=== PATIENT | female | born 1975 | race Caucasian/White ===

== ENCOUNTER 2023-03-30 12:03 | Inpatient (IN) | payer MEDICAID ==
[~2023-03-30] VITALS: Ht 157.5 cm; Wt 75.7 kg
[2023-03-30 12:26] VITALS: BP 126/77; PULSE 68; RESP 15; TEMP 97.6; O2SAT 99
[2023-03-30] MEDS ORDERED: ONDANSETRON 4 MG/2 ML VIAL IVP ONE (12:40)
[2023-03-30] MEDS ORDERED: MORPHINE SULFATE 4 MG/ML SYR IVP ONE (12:40)
[2023-03-30 13:14] VITALS: O2SAT 99
[2023-03-30 13:23] LABS: BASOPHILS % (AUTO) 0.3 % (0.0-2.0); EOSINOPHILS # (AUTO) 0.1 K/uL (0-0.4); EOSINOPHILS % (AUTO) 1.9 % (0.0-4.0); HEMATOCRIT 31.2 % (36-48); HEMOGLOBIN 10.1 g/dL (12.0-16.0); LYMPHOCYTES # (AUTO) 1.6 K/uL (2.5-16.5); LYMPHOCYTES % (AUTO) 23.5 % (20.5-51.1); MEAN CORPUSCULAR HEMOGLOBIN 25 pg (27-31); MEAN CORPUSCULAR HGB CONC 32 g/dL (33-37); MEAN CORPUSCULAR VOLUME 77.8 fL (80-94); MONOCYTES # (AUTO) 0.5 K/uL (0.8-1.0); MONOCYTES % (AUTO) 7.8 % (1.7-9.3); NEUTROPHILS # (AUTO) 4.4 K/uL (1.8-7.7); NEUTROPHILS % (AUTO) 66.5 % (42.2-75.2); PLATELET COUNT (AUTO) 327 K/uL (140-450); RED BLOOD CELL COUNT(AUTO) 4.01 MIL/uL (4.20-5.40); RED CELL DISTRIBUTION WIDTH 19.4 % (11.6-13.7); WHITE BLOOD COUNT (AUTO) 6.7 K/uL (4.8-10.8)
[2023-03-30 13:37] LABS: INR 0.99 (0.8-1.2); PARTIAL THROMBOPLASTIN TIME 23.5 secs (22-35.6); PROTHROMBIN TIME 10.4 secs (10.8-13.4)
[2023-03-30 13:38] LABS: ALBUMIN 2.9 g/dL (3.4-5.0); ANION GAP 9.8 (8-16); CALCIUM 8.1 mg/dL (8.5-10.1); CARBON DIOXIDE 27.9 mmol/L (21-32); CREATININE 0.8 mg/dL (0.6-1.3); TOTAL BILIRUBIN 0.9 mg/dL (0.0-1.0); TOTAL PROTEIN, SERUM 6.7 g/dL (6.4-8.2)
[2023-03-30 13:40] LABS: POTASSIUM 2.7 mmol/L (3.5-5.1)
[2023-03-30] MEDS ORDERED: KCL 20 MEQ IN 100 mL PREMIX 200 ML IV ONE (13:45)
[2023-03-30] MEDS ORDERED: NACL 0.9% 1,000 ML IV ONE (13:45)
[2023-03-30] MEDS ORDERED: MAG SULF 2000 MG/WATER PREMIX 50 ML IV ONE (14:10)
[2023-03-30] MEDS ORDERED: ONDANSETRON 4 MG/2 ML VIAL IVP PRN (14:35)
[2023-03-30] MEDS ORDERED: cefTRIAXone 1,000 MG VIAL ONE (14:43)
[2023-03-30] MEDS ORDERED: ATOR10TA PO (15:43)
[2023-03-30] MEDS ORDERED: METF-350 PO (15:43)
[2023-03-30] MEDS ORDERED: LISI20TA29 PO (15:43)
[2023-03-30] MEDS ORDERED: INSULIN LISPRO SLIDING SCALE 100 UNITS/ML VIAL SUBQ PRN (17:50)
[2023-03-30] MEDS ORDERED: DEXTROSE 50% 50 ML SYR IVP PRN (17:50)
[2023-03-30] MEDS ORDERED: KCL 20 MEQ IN 100 mL PREMIX 100 ML IV SCH (18:21)
[2023-03-30 19:30] VITALS: PULSE 63; RESP 18; O2SAT 95
[2023-03-30 20:00] VITALS: PULSE 63; RESP 18; O2SAT 95
[2023-03-30] MEDS: BLOOD GLUCOSE MONITORING 1 DEV DEV FS SCH (21:00)
[2023-03-30] MEDS: DEXT 5% /NACL 0.9% 1,000 ML IV SCH (21:51)
[2023-03-30] MEDS: MORPHINE SULFATE 2 MG/ML SYR IVP PRN (22:28)
[2023-03-31] VITALS (8 sets, daily range): BP systolic 119–152; BP diastolic 71–83; PULSE 61–70; RESP 18; TEMP 97.2–98.8; O2SAT 94–98
[2023-03-31 04:04] LABS: BASOPHILS % (AUTO) 0.3 % (0.0-2.0); EOSINOPHILS # (AUTO) 0.1 K/uL (0-0.4); EOSINOPHILS % (AUTO) 2.6 % (0.0-4.0); HEMATOCRIT 29.6 % (36-48); HEMOGLOBIN 9.4 g/dL (12.0-16.0); LYMPHOCYTES # (AUTO) 1.4 K/uL (2.5-16.5); LYMPHOCYTES % (AUTO) 32.7 % (20.5-51.1); MEAN CORPUSCULAR HEMOGLOBIN 25 pg (27-31); MEAN CORPUSCULAR HGB CONC 32 g/dL (33-37); MEAN CORPUSCULAR VOLUME 77.9 fL (80-94); MONOCYTES # (AUTO) 0.4 K/uL (0.8-1.0); MONOCYTES % (AUTO) 8.8 % (1.7-9.3); NEUTROPHILS # (AUTO) 2.4 K/uL (1.8-7.7); NEUTROPHILS % (AUTO) 55.6 % (42.2-75.2); PLATELET COUNT (AUTO) 293 K/uL (140-450); RED CELL DISTRIBUTION WIDTH 19.4 % (11.6-13.7); WHITE BLOOD COUNT (AUTO) 4.3 K/uL (4.8-10.8)
[2023-03-31 04:10] LABS: ALBUMIN 2.5 g/dL (3.4-5.0); ANION GAP 11.6 (8-16); CALCIUM 7.5 mg/dL (8.5-10.1); CARBON DIOXIDE 27.7 mmol/L (21-32); CREATININE 0.7 mg/dL (0.6-1.3); POTASSIUM 3.3 mmol/L (3.5-5.1); TOTAL BILIRUBIN 0.8 mg/dL (0.0-1.0); TOTAL PROTEIN, SERUM 6.1 g/dL (6.4-8.2)
[2023-03-31] MEDS: DEXT 5% /NACL 0.9% 1,000 ML IV SCH (06:20)
[2023-03-31] MEDS: BLOOD GLUCOSE MONITORING 1 DEV DEV FS SCH ×3 (07:09→16:36)
[2023-03-31] MEDS ORDERED: ROCURONIUM 50 MG/5 ML VIAL IV ONE ×3 (07:21→07:52)
[2023-03-31] MEDS ORDERED: PROPOFOL 200 MG/20 ML VIAL IV ONE ×2 (07:21→07:51)
[2023-03-31] MEDS ORDERED: SEVOFLURANE 250 ML BTL INH ONE (07:21)
[2023-03-31] MEDS ORDERED: BUPIVACAINE-MPF 0.25% 30 ML VIAL INJ ONE (07:26)
[2023-03-31] MEDS ORDERED: ceFAZolin 2,000 MG VIAL ONE (07:26)
[2023-03-31] MEDS ORDERED: LIDOCAINE/EPI MPF 1%1:200000 30 ML VIAL INJ ONE (07:32)
[2023-03-31] MEDS ORDERED: ACETAMINOPHEN 100 ML IV ONE (07:32)
[2023-03-31] MEDS ORDERED: fentaNYL citrate 0.05 MG/ML VIAL ONE (07:37)
[2023-03-31] MEDS ORDERED: MIDAZOLAM 2 MG/2 ML VIAL ONE (07:37)
[2023-03-31] MEDS ORDERED: LIDOCAINE 2% 100 MG/5 ML SYR IVP ONE (07:52)
[2023-03-31] MEDS ORDERED: SUGAMMADEX SODIUM 200 MG/2 ML VIAL IV ONE (07:52)
[2023-03-31] MEDS ORDERED: DEXT 5% / NACL 0.45% 1,000 ML IV SCH (07:55)
[2023-03-31] MEDS ORDERED: DEXAMETHASONE 4 MG/ML VIAL ONE ×3 (07:56)
[2023-03-31] MEDS ORDERED: KCL 20 MEQ IN 100 mL PREMIX 100 ML IV SCH (08:05)
[2023-03-31] MEDS ORDERED: ONDANSETRON 4 MG/2 ML VIAL ONE (08:13)
[2023-03-31] MEDS ORDERED: KETOROLAC 30 MG/ML VIAL ONE (08:26)
[2023-03-31] MEDS ORDERED: lisinopriL 10 MG TAB PO SCH (09:00)
[2023-03-31] MEDS: MORPHINE SULFATE 2 MG/ML SYR IVP PRN (12:07)
[2023-03-31] MEDS ORDERED: POTASSIUM CHLORIDE 20% 40 MEQ/15 ML UDC PO SCH (13:00)
[2023-03-31 15:34] LABS: ANION GAP 11.9 (8-16); CALCIUM 7.9 mg/dL (8.5-10.1); CARBON DIOXIDE 23.8 mmol/L (21-32); POTASSIUM 3.7 mmol/L (3.5-5.1)
[2023-03-31] MEDS ORDERED: LEVO750T75 PO (16:17)
[2023-03-31] MEDS ORDERED: HYDROcodone/APAP 5/325 MG 1 TAB TAB PO PRN (16:20)
== END 2023-03-31 18:20 | disposition home or self-care (01) | DRG 263 ==
LOC: MED 12:03 → OBSVTOIN 14:48 → MTU 14:48 → MMU 16:20
PROVIDERS: ADMIT Internal Medicine; ATTEND Internal Medicine
PROC: 0DNU4ZZ Release Omentum, Percutaneous Endoscopic Approach (ICD-10-PCS; 2023-03-31)
PROC: 0FT44ZZ Resection of Gallbladder, Percutaneous Endoscopic Approach (ICD-10-PCS; principal; 2023-03-31 07:30)
DX: K80.20 Calculus of gallbladder without cholecystitis without obstruction (principal); E87.0 Hyperosmolality and hypernatremia; E44.0 Moderate protein-calorie malnutrition; E83.51 Hypocalcemia; E78.5 Hyperlipidemia, unspecified; E87.6 Hypokalemia; I10 Essential (primary) hypertension; Z98.891 History of uterine scar from previous surgery; Z68.30 Body mass index [BMI] 30.0-30.9, adult
CPT/HCPCS: 36415; 76705; 80048; 80053; 82374; 82948; 83690; 83735; 84703; 85025; 85610; 85730; 86886; 86900; 86901; 87081; 88304; 96365; 96367; 96375; 99285; J0690; J0696; J1100; J1815; J1885; J2001; J2250; J2270; J2405; J2704; J3010; J3475; J3480; J3490; J7030; J7060; Q0092